=== PATIENT | male | born 2000 | race African-American/Black ===

== ENCOUNTER 2020-09-20 16:41 | Emergency (ER) | payer SELFPAY ==
[~2020-09-20] VITALS: Ht 175.3 cm; Wt 89.8 kg
[2020-09-20 16:45] VITALS: BP 141/71
--- NOTE | 2020-09-20 17:02 | ED Neurological Problem ---
General Chief Complaint: Neurological Problems Stated Complaint: SOB Nursing Triage Note: PT ARRIVED BY PRIVATE VEHICLE AND CHECKED IN WITH CHIEF COMPLAINT OF SOB AND SEIZURES. PT WAS ALERT AND AMBULATORY TO ROOM 2. PT STATED HE IS HERE, BECAUSE HE HAS BEEN HAVING SEIZURES. PT HAS HAD HISTORY OF SEIZURES WHEN HE WAS YOUNGER AND STOPPED TAKING HIS MEDICATION 8 YEARS AGO, BECAUSE HE COULDN'T AFFORD THEM. PT STATED HE HAD ONE YESTERDAY AND COUPLE WITHIN PAST FEW WEEKS. PT STATED THEY ARE STRESSED INDUCED AND HE HAS HAD A LOT OF STRESS OVER LIFE. PT USES MARIJUANA, BUT DENIES SMOKING OR DRUGS. PT DOES NOT HAVE ALLERGIES TO MEDICATIONS. VITALS WERE DONE AND REPORT WAS GIVEN TO PROVIDER. History of Present Illness Date Seen by Provider: Sep 20, 2020 Time Seen by Provider: 16:55 Initial Comments 19-year-old male presents with "stress-related seizures". States he was on medication for 8 years until he was 17 years old, metastatic nothing since then. Lately he has been having more seizures with only known precipitating cause being stress. He recently moved to [place] from [place] in March of this year and has not established primary care provider. His seizures are nonepileptic, he does not lose consciousness or lose bowel or bladder control. Allergies and Home Medications Patient Home Medication List Home Medication List Reviewed: Yes Review of Systems Review of Systems Constitutional: no symptoms reported Respiratory: no symptoms reported Cardiovascular: no symptoms reported Musculoskeletal: no symptoms reported Psychiatric/Neurological: See HPI; Denies Headache, Denies Numbness; Petit Mal Seizures (unsure of type); Denies Tonic Clonic Seizures, Denies Unable to Move Lower Ext, Denies Unable to Move Upper Ext, Denies Weakness Past Hhtaaos-Edvbwt-Ocozfg Hx Patient Social History Tobacco Use?: No Smoking Status: Never a Smoker Substance use?: Yes Substance type: Marijuana Alcohol Use?: No Pt feels they are or have been: No Physical Exam Vital Signs Vital Signs - First Documented 09/20/20 16:45 Temp 36.5 Pulse 77 Resp 16 B/P (MAP) 141/71 (94) Pulse Ox 99 O2 Delivery Room Air Capillary Refill : Less Than 3 Seconds Height, Weight, BMI Height: '" Weight: lbs. oz. kg; 29.00 BMI Method: General Appearance: WD/WN, no apparent distress HEENT: PERRL/EOMI, normal ENT inspection Neurologic/Psychiatric: no motor/sensory deficits, alert, normal mood/affect, oriented x 3 Crainal Nerves: normal hearing, normal speech Coordination/Gait: normal gait Motor/Sensory: no motor deficit, no sensory deficit Progress/Results/Core Measures Results/Orders Vital Signs/I&O 09/20/20 16:45 Temp 36.5 Pulse 77 Resp 16 B/P (MAP) 141/71 (94) Pulse Ox 99 O2 Delivery Room Air Blood Pressure Mean: 94 Departure Impression Primary Impression: Seizure disorder Disposition: HOME, SELF-CARE Condition: Stable Departure-Patient Inst. Decision time for Depature: 16:58 Referrals: [facility] Patient Instructions: Seizures, Adult (DC) Add. Discharge Instructions: Call the [facility] clinic to schedule (and establish care with a primary care provider) regarding your history of seizures All discharge instructions reviewed with patient and/or family. Voiced understanding. AYUSH BARRERA DO Sep 20, 2020 17:02
== END 2020-09-20 17:13 | disposition home or self-care (01) ==
LOC: ER FS 16:43
DX: G40.909 Epilepsy, unspecified, not intractable, without status epilepticus (principal)
CPT/HCPCS: 99283

== ENCOUNTER 2020-11-05 18:08 | Emergency (ER) | payer SELFPAY ==
[~2020-11-05] VITALS: Ht 175 cm; Wt 89.0 kg
[2020-11-05 18:19] VITALS: BP 146/80
--- NOTE | 2020-11-05 18:26 | ED Headache ---
General Chief Complaint: General Problems/Pain Stated Complaint: HEADACHE Nursing Triage Note: PT REPORTS HE HAS HAD A HEADACHE OFF AND ON FOR ABOUT A WEEK. HE CALLED INTO WORK TONIGHT AT [employer] AND HIS DIGITAL MEDIA DIRECTOR TOLD HIM HE NEEDS A DOCTORS NOTE. HE PRESSNTS TO THE ER FOR A WORK NOTE. Source: patient Exam Limitations: no limitations History of Present Illness Date Seen by Provider: Nov 05, 2020 Time Seen by Provider: 18:18 Initial Comments 19-year-old male presents with complaint of intermittent headache for the past 1 week. Headache primarily present in the mornings and goes away throughout the day then returns again brought in today was going to bed. States that he sleeping well, denies any recent illness, fever chills, cough, nasal congestion, runny nose or allergy symptoms. Denies any ear pain or sore throat. Denies any change in vision or eye pain, photophobia, nausea or vomiting. He has occasionally taken 1 or 2 ibuprofen with minimal relief, however he states that headaches do tend to go away on their own throughout the day. Is never seen a doctor for headaches and has no significant past medical history is on no medication. Allergies and Home Medications Patient Home Medication List Home Medication List Reviewed: Yes Review of Systems Review of Systems Constitutional: No chills, No fever, No malaise, No weakness Eyes: No Symptoms Reported Ears, Nose, Mouth, Throat: no symptoms reported Respiratory: no symptoms reported Gastrointestinal: no symptoms reported Musculoskeletal: No back pain, No neck pain Psychiatric/Neurological: Denies Anxiety, Denies Depressed, Denies Emotional Problems; Headache; Denies Numbness, Denies Paresthesia, Denies Seizure, Denies Tingling, Denies Tremors, Denies Weakness Past Xsvavjs-Ckxfgf-Dihzny Hx Patient Social History Tobacco Use?: No Use of E-Cig and/or Vaping dev: No Substance use?: No Alcohol Use?: No Pt feels they are or have been: No Physical Exam Vital Signs Vital Signs - First Documented 11/05/20 11/05/20 18:12 18:19 Temp 36.6 Pulse 82 Resp 18 B/P (MAP) 146/80 (102) Pulse Ox 98 O2 Delivery Room Air Capillary Refill : Less Than 3 Seconds Height, Weight, BMI Height: '" Weight: lbs. oz. kg; 29.00 BMI Method: General Appearance: WD/WN, no apparent distress HEENT: PERRL/EOMI, normal ENT inspection, TMs normal, pharynx normal Neck: non-tender, full range of motion, supple, normal inspection Psychiatric: alert, oriented x 3 Crainal Nerves: normal hearing, normal speech, PERRL Coordination/Gait: normal finger to nose, normal gait Motor/Sensory: no motor deficit, no sensory deficit Progress/Results/Core Measures Results/Orders Vital Signs/I&O 11/05/20 11/05/20 18:12 18:19 Temp 36.6 36.6 Pulse 82 82 Resp 18 16 B/P (MAP) 146/80 (102) 146/80 Pulse Ox 98 98 O2 Delivery Room Air Blood Pressure Mean: 102 Progress Progress Note : Progress Note Short-term (1 week) episodic headache, primarily worse in the morning and at night. Patient admits that he does not drink any water and encouraged him to drink at least 6 glasses a day. No headache at time of exam, he did miss work today and was advised he needed a doctors note to return to work. Departure Impression Primary Impression: Headache Qualified Codes: R51.9 - Headache, unspecified Disposition: 01 HOME, SELF-CARE Condition: Stable Departure-Patient Inst. Decision time for Depature: 18:24 Referrals: NO,LOCAL PHYSICIAN (PCP/Family) Primary Care Physician Patient Instructions: Headache, Adult ED Add. Discharge Instructions: Increase your water intake. Drink less caffeine or sugary beverages. Take 600-800mg of Ibuprofen up to 3 times daily for a bad headache Establish and see a Primary Care Doctor here locally in 1-2 weeks if your headaches are not improving or resolved. All discharge instructions reviewed with patient and/or family. Voiced understanding. Work/School Note: Work Release Form Date Seen in the Emergency Department: Nov 05, 2020 Return to Work: Nov 06, 2020 Restrictions: No Restrictions AYUSH BARRERA DO Nov 05, 2020 18:26
== END 2020-11-05 18:28 | disposition home or self-care (01) ==
LOC: EDUNIT# 18:08 → ER FS 18:09
DX: R51.9 Headache, unspecified (principal)
CPT/HCPCS: 99281

== ENCOUNTER 2021-01-09 01:08 | Emergency (ER) | payer SELFPAY ==
[~2021-01-09] VITALS: Ht 175.2 cm; Wt 98.1 kg
[2021-01-09 01:12] VITALS: BP 157/75
== END 2021-01-09 02:08 | disposition left against medical advice (07) ==
LOC: EDUNIT# 01:08 → ER FS 01:10
DX: F32.9 Major depressive disorder, single episode, unspecified (principal)
CPT/HCPCS: 99283